=== PATIENT | male | born 1985 | race Native Hawaiian/Other Pacific Islander ===

== ENCOUNTER 2017-03-25 15:48 | Outpatient (CLI) | payer BC | END 2017-03-25 16:50 | disposition home or self-care (01) | LOC: RAD 15:48 | DX: M12.551 Traumatic arthropathy, right hip (principal) ==

== ENCOUNTER 2021-01-17 12:36 | Outpatient (CLI) | payer BC | END 2021-01-17 22:02 | disposition home or self-care (01) | LOC: NM 12:36 | PROVIDERS: ATTEND Registered Nurse | DX: R11.0 Nausea (principal) | CPT/HCPCS: A9537 ==

== ENCOUNTER 2022-02-11 08:47 | Outpatient (CLI) | payer OTHER | END 2022-02-11 19:18 | disposition home or self-care (01) | LOC: CT 08:47 | PROVIDERS: ATTEND Registered Nurse | DX: R10.13 Epigastric pain (principal) | CPT/HCPCS: Q9963 ==